=== PATIENT | male | born 1965 | race Hispanic/Latino ===

== ENCOUNTER 2020-12-12 12:56 | Emergency (ER) | payer OTHER ==
[2020-12-12] MEDS ORDERED: KETOROLAC TROMETHAMINE 60 MG/2 ML VIAL ONE (15:00)
[2020-12-12] MEDS ORDERED: OCTREOTIDE ACETATE 100 MCG/ML AMP ONE (15:27)
== END 2020-12-12 15:27 | disposition home or self-care (01) ==
LOC: EDH 12:56
DX: S80.12XA Contusion of left lower leg, initial encounter (principal); W18.39XA Other fall on same level, initial encounter; Y93.89 Activity, other specified; Y92.89 Other specified places as the place of occurrence of the external cause; Y99.8 Other external cause status
CPT/HCPCS: 73590; 73610; 73630; 96372; 99284; J1885; J2354